=== PATIENT | female | born 1990 | race Caucasian/White ===

== ENCOUNTER 2022-04-01 23:38 | Emergency (ER) | payer OTHER ==
[~2022-04-01] VITALS: Ht 157.5 cm; Wt 75.0 kg
[2022-04-02 05:10] VITALS: BP 98/68
[2022-04-02] MEDS ORDERED: IOHEXOL-300 100 ML BOTTLE ONE (06:33)
[2022-04-02] MEDS ORDERED: IBUP-2029 MT (06:36)
== END 2022-04-02 06:57 | disposition home or self-care (01) ==
LOC: ER 23:38
DX: S39.81XA Other specified injuries of abdomen, initial encounter (principal); S09.8XXA Other specified injuries of head, initial encounter; V43.52XA Car driver injured in collision with other type car in traffic accident, initial encounter; Y93.89 Activity, other specified; Y92.410 Unspecified street and highway as the place of occurrence of the external cause
CPT/HCPCS: 70450; 74177; 99291; Q9967